=== PATIENT | male | born 1995 | race Caucasian/White ===

== ENCOUNTER 2023-11-22 13:24 | Emergency (ER) | payer SELFPAY ==
[2023-11-22 13:36] VITALS: BP 117/80
--- NOTE | 2023-11-22 13:43 | ED.GENMED ---
History of Present Illness
General
Chief Complaint: Male Genito-Urinary Symptoms
Source: patient
Exam Limitations: none
Time Seen by Provider: 11/22/23 13:42
Nursing documentation reviewed up to this point in time: agreed with
History of Present Illness
History of Present Illness:
28-year-old male with no significant past medical history presents for right testicle pain. He states his right testicle started with a mild ache 1 week ago, has become more painful and now he gets sharp shooting pains up into the groin and the
abdomen from the right testicle. He denies burning, urgency or frequency of urination. He denies fever or chills.
Past History
Past History
ED Past Medical History: None
ED Past Surgical History: None
Social History
Tobacco: Non-smoker
Alcohol: Occasional
Living: with roommate
Employment: Employed
Review of Systems
Review of Systems
Allergies reviewed?: Yes
All Other Systems: ROS reviewed and negative except as documented in HPI and ROS
Constitutional: Denies fever
ABD/GI: Denies nausea or vomiting
: Reports other (Right testicular discomfort); Denies dysuria, frequency, flank pain, difficulty voiding, urgency or discharge
Phy Exam
Physical Exam
Physical Exam:
GENERAL: No acute distress. A&Ox3.
CONSTITUTIONAL: Afebrile.
RESPIRATORY: Regular respirations, nonlabored, lungs clear.
CARDIOVASCULAR: Regular rate and rhythm, no murmurs, no rubs.
GI: Soft, nontender, normal BS
: normal appearing circumcised external genitalia, mild tenderness, no palpable masses R testicle. No scrotal redness or swelling.
MUSCULOSKELETAL: Moves with ease. Well perfused.
SKIN: Warm, dry, pink
PSYCH: Normal mood and affect. Well kept, interactive and appropriate
NEUROLOGIC: Awake, alert and oriented. No focal neurological deficits
Course
Orders/Labs/Results
Orders:
Orders
11/22/23 13:28
US Scrotum Urgent
Comment:
Reason For Exam: pain in testicle
11/22/23 13:48
Test Result ONCE
11/22/23 13:54
Urinalysis Reflex To Culture Urgent
Date Specimen was Collected: 11/22/23
Time Specimen was Collected: 13:51
Chlamydia/GC by PCR Urgent
JOSÉ MIGUEL Source: Urine
Specimen Description:
Source:: URINE
Date Specimen was Collected: 11/22/23
Time Specimen was Collected: 13:51
11/22/23 13:48
Vital Signs
Initial and Last Documented VS:
Initial Vital Signs
Temp Pulse Resp BP Pulse Ox
98.0 F 65 16 117/80 98
11/22/23 13:36 11/22/23 13:36 11/22/23 13:36 11/22/23 13:36 11/22/23 13:36
Last Documented Vital Signs
Temp Pulse Resp BP Pulse Ox
98.0 F 65 16 121/82 98
11/22/23 13:36 11/22/23 13:36 11/22/23 13:36 11/22/23 16:59 11/22/23 13:36
MDM/Problems Addressed
Differential Diagnosis Includes:
Testicular torsion, hydrocele, varicocele, muscle strain
MDM/Problems Addressed:
28-year-old male with no significant past medical history presents for right testicle pain. He states his right testicle started with a mild ache 1 week ago, has become more painful and now he gets sharp shooting pains up into the groin and the
abdomen from the right testicle. He denies burning, urgency or frequency of urination. He denies fever or chills.
Patient is comfortable, ultrasound result just reported, normal testes and epididymis bilaterally. Small bilateral hydroceles
Most likely muscle strain as patient works out several times a week
Pt informed of results.
*Critical Care Note
Total Time (30-74mins, 75-104mins- exclusive of procedures): Not Applicable
ED Attending Note
-
Portions of this chart may have been created with voice recognition software.� Occasional wrong word or��sound alike� substitutions may have occurred due to the inherent limitations of voice recognition software.
Discharge Plan
Departure
Patient Disposition: Home (Routine Discharge)
Date of Disposition: 11/22/23
Time of Disposition: 17:15
Patient with high blood pressure during this ER visit?: No
Condition: Good
Discharge Problem:
Right testicular pain
Instructions: Groin Strain (DC)
Prescriptions:
No Action
amoxicillin-pot clavulanate 1 TABLET tablet
1 tab PO Q12 Qty: 14 0RF
Referrals:
NONE,* [Family Provider] -
Activity Restrictions/Additional Instructions:
As we discussed, nothing worrisome on the Ultrasound
Most likely muscle/groin strain
Ibuprofen 600 mg every 8 hours as needed for pain
Avoid activity that aggravates the pain until it it gone.
Interventions
Interventions:
*Risk Screen - Suicide Last Done: 11/22/23 13:58
*General Assessment Last Done: 11/22/23 13:58
*Neglect/Abuse Screening Last Done: 11/22/23 13:58
ED- Fall Risk Assessment Last Done: 11/22/23 13:58
*ED COVID-19 Vaccine History Last Done: 11/22/23 13:58
*Nursing Disposition Last Done: 11/22/23 17:29
ED-Male Genitourinary Assessment Last Done: 11/22/23 13:58
Discharge Date and Time
Discharge Date/Time: 11/22/23 17:29
Print Language: SERBIAN
[2023-11-22 13:55] VITALS: BMI 25.9
[2023-11-22 14:31] LABS: Urine Albumin Negative (Neg - Trace); Urine Bilirubin Negative (Negative); Urine Character Clear (Clear); Urine Color Yellow; Urine Glucose Negative (Negative); Urine Ketone Negative (Negative); Urine Leukocyte Negative (Negative); Urine Nitrite Negative (Negative); Urine Occult Blood Negative (Negative); Urine Specific Gravity 1.015 (<1.030); Urine Urobilinogen Negative (Neg - 1+)
[2023-11-22 16:59] VITALS: BP 121/82
== END 2023-11-22 17:29 | disposition home or self-care (01) ==
LOC: EMR 13:24
PROVIDERS: Registered Nurse; EMERGENCY PHYSICIAN Emergency Medicine
DX: N50.811 Right testicular pain (principal); R10.30 Lower abdominal pain, unspecified; N43.3 Hydrocele, unspecified; Z86.16 Personal history of COVID-19
CPT/HCPCS: 99284; 76870; 81003; 87491; 87591; 93976